=== PATIENT | male | born 1980 | race African-American/Black ===

== ENCOUNTER 2020-08-11 05:31 | Emergency (ER) | payer OTHER ==
[~2020-08-11] VITALS: Ht 170.2 cm; Wt 68.0 kg
[~2020-08-11 05:31] MED LIST: PREDNISONE50 MG PO
[2020-08-11 05:36] VITALS: BP 127/86
[2020-08-11 06:04] LABS: ABSOLUTE NEUTROPHILS 4.2 thou/uL (1.4-8.2); BASOPHILS 0.8 % (0.0-2.0); EOSINOPHILS 1.1 % (0.0-3.0); HEMATOCRIT 42.2 % (42.0-52.0); HEMOGLOBIN 13.5 gm/dL (14.0-18.0); LYMPHOCYTES 16.8 % (24.0-44.0); MCH 28.3 pg (26.0-34.0); MCHC 31.9 g/dL (28.0-37.0); MCV 88.5 fL (80.0-100.0); MONOCYTES 8.7 % (1.0-8.0); PLATELET COUNT 213 thou/uL (150-400); POLYS 72.6 % (36.0-66.0); RBC 4.76 mil/uL (4.50-6.00); RDW 14.2 % (10.5-14.5); WBC 5.7 thou/uL (4.0-11.0)
[2020-08-11 06:18] LABS: CALCIUM 9.3 mg/dL (8.5-10.1); CREATININE 1.3 mg/dL (0.7-1.3); POTASSIUM 4.3 mmol/L (3.5-5.1)
[2020-08-11 06:26] LABS: ALBUMIN 4.2 g/dL (3.4-5.0); TOTAL BILIRUBIN 0.3 mg/dL (0.2-1.0); TOTAL PROTEIN 7.7 g/dL (6.4-8.2)
--- NOTE | 2020-08-11 07:21 | EKG ---
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1980 Requested By: Dale Weston Order Number: [id number] MD: Michael Duncan Measurements Intervals [place] Rate: 57 P: 88 AR: 230 QRS: 62 QRSD: 75 T: 70 QT: 414 QTc: 403 Interpretive Statements Sinus rhythm Prolonged AR interval Left ventricular hypertrophy Nonspecific T abnrm, anterolateral leads ST elev, probable normal early repol pattern Compared to ECG 01/04/2016 19:01:32 First degree AV block now present Left ventricular hypertrophy now present ST (T wave) deviation still present Electronically Signed On 08-11-2020 7:21:20 [employer] by Michael Duncan [email or web address] <ELECTRONICALLY SIGNED> By: Michael Duncan MD, [facility] 08/11/20 0721 0550 0550 Michael Duncan MD, [facility] /EPI
== END 2020-08-11 07:00 | disposition home or self-care (01) ==
LOC: ER 05:31
PROVIDERS: Emergency Medicine
DX: G89.29 Other chronic pain (principal); R07.9 Chest pain, unspecified